=== PATIENT | female | born 1995 | race Caucasian/White ===

== ENCOUNTER 2020-03-12 12:20 | Emergency (ER) | payer MEDICAID, SELFPAY ==
[2020-03-12 13:21] VITALS: BP 176/13; PULSE 111; RESP 20; TEMP 36.6; O2SAT 96; BMI 40.2
--- NOTE | 2020-03-12 13:21 | ED.GENADULT ---
HPI - General Adult General Chief complaint: Chest Pain Stated complaint: CHEST PAIN Time Seen by Provider: 03/12/20 13:20 Source: patient Mode of arrival: ambulatory Limitations: no limitations History of Present Illness HPI narrative: 25-year-old female a medical history of bipolar disease, asthma, migraines, high cholesterol, anxiety here with complaints of some chest discomfort and shortness of breath the last 3 days. Pain occurs at rest comes on for several seconds and self resolved. It is associated with some shortness of breath, palpitations and anxiety. There is no associated diaphoresis, nausea, vomiting, dizziness. Patient tells me that she feels very anxious. She tells me she think she should speak to her psychiatrist about her medications that they can be adjusted. She does have lorazepam at home that has not tried taking this because she says it sometimes makes her feel sleepy. Onset (ago): day(s) Location: chest Radiation: non-radiation Severity: mild Quality: sharp Pain Consistency: intermittent and now resolved Relieving factors: none Exacerbating factors: none Associated symptoms: shortness of breath Treatments prior to arrival: none Related Data Home Medications Medication Instructions Recorded Confirmed Celexa 03/12/20 Gildess FE 1.5 (28) 03/12/20 03/12/20 clonidine 03/12/20 Allergies Allergy/AdvReac Type Severity Reaction Status Date / Time cephalexin [From KEFLEX] Allergy Unknown RASH Unverified 11/24/19 16:41 morphine [MORPHINE] Allergy Unknown RASH/HIVES Unverified 11/24/19 16:41 ranitidine [RANITIDINE] Allergy Unknown VOMITING Unverified 11/24/19 16:41 sucralfate [From CARAFATE] Allergy Unknown VOMITING Unverified 11/24/19 16:41 Sulfa (Sulfonamide Allergy Unknown Verified 01/04/16 00:00 Antibiotics) sulfamethoxazole Allergy Unknown VOMITING Unverified 11/24/19 16:41 [From BACTRIM] trimethoprim [From BACTRIM] Allergy Unknown VOMITING Unverified 11/24/19 16:41 From KEFLEX Allergy Unknown RASH Uncoded 11/24/19 16:41 Review of Systems Review of Systems: Yes all other systems are reviewed and are negative Constitutional: Constitutional: Reports no additional constitutional complaints, Denies body ache(s), Denies chills, Denies fever(s), Denies headache(s) and Denies weakness Eyes: Eyes: Reports no additional eye complaints and Denies change in vision ENT: Reports system reviewed and no additional complaints, except as documented, Denies dizziness, Denies headache(s), Denies nasal congestion, Denies nasal discharge and Denies neck pain Cardiovascular: Cardiovascular: Reports no additional cardiovascular complaints, Reports chest pain, Denies leg edema, Reports palpitations and Reports dyspnea Respiratory: Respiratory: Reports no additional respiratory complaints, Denies cough and Reports dyspnea Gastrointestinal: Gastrointestinal: Reports no additional gastrointestinal complaints, Denies abdominal pain, Denies diarrhea, Denies nausea and Denies vomiting Genitourinary: Genitourinary: Reports no additional female genitourinary complaints and Denies urinary incontinence Musculoskeletal: Musculoskeletal: Reports no additional musculoskeletal complaints, Denies back pain, Denies arthralgias, Denies joint swelling, Denies neck pain, Denies numbness and Denies tingling Integumentary/Breasts: Skin/Breast: Reports system reviewed and no additional complaints, except as docu and Denies rash Neurologic: Reports system reviewed and no additional complaints, except as documented, Denies Abnormal speech present, Denies dizziness, Denies headache(s), Denies numbness, Denies tingling and Denies weakness Endocrine: Endocrine: Reports palpitations PMFSH Past Medical History Attestation statement: The following information was validated with the patient. Source: nursing notes reviewed Medical History Asthma Bipolar 1 disorder Migraine Social History Social History Advance Directives: No Advance Directives Information Provided: No Physical Exam Vital Signs: Vital Signs: Last Vital Signs Temp 97.9 F 03/12/20 13:21 Pulse 111 H 03/12/20 13:21 Resp 20 03/12/20 13:21 BP 176/13 H 03/12/20 13:21 Pulse Ox 96 03/12/20 13:21 Body Mass Index 40.2 Const: General: cooperative, healthy appearing, comfortable and anxious Orientation/consciousness: patient oriented x3 Limitations: no limitations HENMT: Head: Yes normal to inspection Ears: hearing grossly normal bilaterally General nose exam: Normal external nose present Face and sinus: Yes normal facial exam Mouth: Normal oral and palatal mucosa present Throat: Yes posterior oropharynx normal Eyes: General: appearance normal, both eyes and all related structures Pupils: Equal, round and reactive pupils present Neck: Neck: Yes normal visual inspection Chest: Chest palpation & inspection: normal inspection of the chest Resp: Effort & Inspection: normal respiratory effort Auscultation: clear to auscultation bilaterally Cardio: Rate: regular rate Rhythm: regular rhythm Peripheral pulses: Peripheral pulses 2+ throughout GI: Inspection: Yes normal to inspection Palpation (GI): Soft to palpation and nontender Auscultation: normal bowel sounds Back/Spine/Pelvis: Thoracic/Lumbar Spine: thoracic and lumbar spine normal to inspection Skin: General skin exam: no rashes or lesions noted Neuro: General: patient oriented x3, no focal motor deficits and normal sensation to monofilament Cranial nerves: Yes Equal, round and reactive pupils present Cognition (Neuro): normal cognition Speech: No Abnormal speech present Gait exam (Neuro): Normal gait present Motor exam (neuro): 5/5 motor strength present throughout Extrem: General: Yes normal to inspection Course Course Course Narrative: 1320- This is a rapid medical exam. 25 yo female with past medical history of asthma, migraines, HLD, bipolar here chest pain x 3 days, mild shortness of breath, anxiety. Patient relates symptoms to anxiety. Recent admit for bipolar with med management. Will check EKG, CXR. 1605-chest x-ray unremarkable. EKG shows sinus tachycardia with no ischemic changes. Less likely ACS with unremarkable EKG and symptoms greater than 3 days which are atypical in nature. Heart score 0. Patient relates her symptoms to anxiety and her current medications. She has a psychiatrist who she plans on reaching out to to adjust her medications. She tells me that she does not need crisis. She is not suicidal or homicidal and feels like her mood is well managed at this time. Patient given lorazepam 0.5 mg in the ED with improvement in symptoms. Reviewed worrisome signs and symptoms and when to return to the emergency department. Comfortable discharge home. Medical Decision Making Medical Records Medical records reviewed: Yes I reviewed the patient's medical records. Lab Data Lab results reviewed: Yes I reviewed the patient's lab results. Imaging Data Chest x-ray: Attestation: I personally reviewed and interpreted this imaging study as follows: Radiologist's impression: EXAMINATION: XR CHEST CLINICAL INFORMATION: Chest pain COMPARISON: None TECHNIQUE: 2 views of the chest were obtained. FINDINGS: No significant abnormality is noted involving the heart, lungs, mediastinum, bony thorax or soft tissues. XR/XR chest 2V IMPRESSION: Unremarkable examination. ECG Data Attestation: I personally reviewed and interpreted this ECG as follows: Interpretation: Sinus tachycardia with a rate of 117, normal FL, normal QRS, normal QT, normal ST segment Discharge Plan Discharge Clinical Impression: Atypical chest pain, Anxiety Patient Disposition: Home, Self-Care Instructions: Chest Pain (ED), Anxiety (ED) Additional Instructions: Call Vishal Felipe to discuss your medications We gave you one dose of ativan here. You have it at home if you need it. Prescriptions: No Action Celexa RF: 0 Gildess FE 1.5 (28) RF: 0 clonidine RF: 0 Referrals: Sadie Flynn, MARKETING SALES [employer]PERVISOR [Primary Care Provider] - 2 days Stand Alone Forms: Work/School Release Interventions: ED Discharge Assessment Last Done: 03/12/20 16:10 Discharge Date/Time: 03/12/20 16:20
--- NOTE | 2020-03-12 13:25 | ECG_ITS ---
Test Reason : CHEST PAIN Blood Pressure : / mmHG Vent. Rate : 117 BPM Atrial Rate : 117 BPM P-R Int : 124 ms QRS Dur : 078 ms QT Int : 308 ms P-R-T Axes : 056 023 030 degrees QTc Int : 429 ms Sinus tachycardia Otherwise normal ECG When compared to the previous EKG of No significant changes seen Referred By: Ban Stone Electronically Signed By:Casper Melgar
--- NOTE | 2020-03-12 13:25 | XR_ITS ---
EXAMINATION: XR CHEST CLINICAL INFORMATION: Chest pain COMPARISON: None TECHNIQUE: 2 views of the chest were obtained. FINDINGS: No significant abnormality is noted involving the heart, lungs, mediastinum, bony thorax or soft tissues. XR/XR chest 2V IMPRESSION: Unremarkable examination.
[2020-03-12] MEDS: LORazepam 0.5 MG TABLET PO (16:08)
== END 2020-03-12 16:20 | disposition home or self-care (01) ==
LOC: HO.ED 16:12
PROVIDERS: Emergency Provider Emergency Medicine; PCP Nurse Practitioner Family
DX: R07.89 Other chest pain (principal); F41.9 Anxiety disorder, unspecified
CPT/HCPCS: 71046; 93005; 99283

== ENCOUNTER 2020-03-23 17:13 | Inpatient (IN) | payer MEDICAID, OTHER, SELFPAY ==
[2020-03-23 17:37] VITALS: BP 157/113; PULSE 116; RESP 16; TEMP 36.2; O2SAT 98; BMI 36.0
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
[2020-03-23 17:57] VITALS: BP 157/113; PULSE 116; RESP 16; TEMP 36.2; O2SAT 98
--- NOTE | 2020-03-23 18:26 | PC.NURSE ---
Pt walking around unit, anxious about process, plan of care explained. Pt concerned about going inpatient, adamant that she does not want to hurt herself or anyone else. Pt states that last time she went inpatient she was there for months and she does not want that to happen again. Pt states that she is taking her medications but that she was taken off of celexa recently, pt is unsure of what her other medications are at this time. Pt is calm and cooperative, pleasant in conversation.
[2020-03-23 18:38] LABS: Imm Gran Abs Auto 0.03 X10*3/uL (0.00-0.03); MANUAL DIFF FLAG SCAN; Monocytes Absolute Auto 0.5 X10*3/uL (0.1-1.2); PLT CLUMP 1; Red Cell Distribution Width 12.6 % (11.0-16.0); SCAN SMEAR FLAG 1
[2020-03-23 18:40] LABS: Basophils Absolute Auto 0.1 X10*3/uL (0.0-0.2); Basophils Percent Auto 0.5 % (0-2); Eosinophils Absolute Auto 0.2 X10*3/uL (0.0-0.4); Eosinophils Percent Auto 1.5 % (0-4); Hemoglobin 14.1 g/dl (12.0-16.0); Imm Gran Pct Auto 0.2 % (0.0-0.4); Lymphocytes Absolute Auto 2.4 X10*3/uL (1.2-4.9); Lymphocytes Percent Auto 20.2 % (20-40); Mean Corpuscular HGB Conc 32.8 g/dl (31.0-35.0); Mean Corpuscular Hemoglobin 30.5 pg (27.0-33.0); Mean Corpuscular Volume 93.1 fL (80-98); Monocytes Percent Auto 3.7 % (2-11); Neutrophils Absolute Auto 8.9 X10*3/uL (2.0-8.3); Neutrophils Percent Auto 73.9 % (45-73); Red Blood Count 4.62 X10*6/uL (4.20-5.50); White Blood Count 12.1 X10*3/uL (4.8-10.8)
--- NOTE | 2020-03-23 19:04 | PC.NURSE ---
DEJUAN faxed/called/spoke with Gloria/confirmed receipt of referral/no ETA at this time, Patient advised to offer urine for MENSAH, no distress reported, will continue to monitor.
[2020-03-23 19:06] LABS: Ethanol < 10 mg/dL
[2020-03-23 19:07] LABS: Anion Gap 14 (12-20); Blood Urea Nitrogen 6 mg/dL (9-16); Calcium 8.7 mg/dL (8.4-10.2); Carbon Dioxide 24 mmol/L (22-29); Chloride 107 mmol/L (96-108); Creatinine Clr Calc Pharmacy 137.5; Estimated Glomerular Filt Rate > 60; Glucose Random 90 mg/dL (60-115); Sodium 141 mmol/L (135-145)
[2020-03-23 19:33] LABS: Platelet Count 230 X10*3/uL (160-400)
[2020-03-23 19:35] LABS: Mean Platelet Volume 11.1 fL (9.4-12.3)
[2020-03-23 19:38] LABS: SLIDE REVIEW VERIFIED
[2020-03-23 19:42] LABS: UPreg QC Valid YES; Urine Pregnancy NEGATIVE (NEGATIVE)
[2020-03-23 19:45] LABS: COVID-19 Test Negative (Negative); IDNOW Serial# 9DD0AD1C
[2020-03-23 20:10] LABS: Amphetamine Screen Urine Not Detected (Not Detect); Barbiturates, Urine Not Detected (Not Detect); Benzodiazepines Screen Urine Not Detected (Not Detect); Cannabinoid Screen Urine POSITIVE (Not Detect); Cocaine Screen Urine Not Detected (Not Detect); Opiate Screen Urine Not Detected (Not Detect); Phencyclidine Screen Urine Not Detected (Not Detect)
[2020-03-23 20:14] VITALS: BP 149/114; PULSE 110; RESP 20; TEMP 36.8; O2SAT 97
[2020-03-23 20:31] VITALS: BP 149/114; PULSE 110
[2020-03-23] MEDS: OLANZapine 5 MG TABLET PO (20:31)
[2020-03-23] MEDS: cloNIDine HCL 0.1 MG TABLET PO (20:31)
--- NOTE | 2020-03-23 20:43 | PC.NURSE ---
[facility]N with patient for evaluation, patient seems engaged, will continue to monitor
[2020-03-24] VITALS (11 sets, daily range): BP systolic 131–175; BP diastolic 41–115; PULSE 100–107; RESP 16–20; TEMP 36.1–36.8; O2SAT 96–98
[2020-03-24] MEDS: OLANZapine 5 MG TABLET PO ×2 (00:02→20:05)
[2020-03-24] MEDS: LORazepam 1 MG TABLET PO ×2 (00:02→07:43)
--- NOTE | 2020-03-24 00:05 | PC.NURSE ---
Patient seems anxious, not so happy with disposition, and reported difficulty sleeping, requested Olanzapine which according to the patient is very helpful to calm her down, provider notified/ordered Ativan 1 mg tablet and Olanzapine 5 mg tablet, patient compliant with medication, will continue to monitor.
--- NOTE | 2020-03-24 00:56 | MHC.CARE ---
CARE Team is present in pod and pt requests to check in. Pt appears anxious and uncomfortable. Pt identifies feeling anxious in response to another pt in the pod who is agitated/loud. rescue worker offers support, encourages cognative restructuring, and suggests coping skills. Pt has been calling her numerous times and is frustrated/worried that he is not responding. She reflects that her behavior earlier today may have negatively impacted their relationship. She identifies that she would like to go home, but understands the plan for sect 12 bedsearch. She reports that she was on last year and stepped down to [facility], which she found helpful. CARE Team receives [facility] crisis eval and will give to for review.
--- NOTE | 2020-03-24 07:24 | PC.NURSE ---
Report received from ABBIE Hilton. Pt awake, alert. Requesting AM medications for anxiety. Pt aware of the time medication schedule and is in agreement w/ waiting. No other concerns reported at this time.
--- NOTE | 2020-03-24 07:39 | PC.NURSE ---
Pt states she is unable to wait until [address] Sanchez notified pt is requesting medications for anxiety.
[2020-03-24] MEDS: cloNIDine HCL 0.1 MG TABLET PO (07:43)
--- NOTE | 2020-03-24 08:39 | PC.NURSE ---
Pt reports only mild relief of anxiety after medications given. Pt states she is anxious about transfer to , reports that she has been recently hospitalized at [facility]. Pt mildly tangential at times, states that anxiety is typically worse in the morning because of PTSD. Pt also reporting chronic lower pelvic pain, states that she has an appt w/ the surgeon who removed her appendix but is uncertain when.
--- NOTE | 2020-03-24 09:31 | PC.NURSE ---
Late entry: A Kajal notified of pt symptoms, and vitals. In to evaluate. Lab work completed as ordered.
--- NOTE | 2020-03-24 09:32 | US_ITS ---
EXAMINATION: US PELVIS CLINICAL INFORMATION: Right-sided pelvic pain. COMPARISON: Previous CT of the abdomen and pelvis April 2016 and pelvic ultrasound December 2015. TECHNIQUE: Transabdominal and transvaginal pelvic ultrasound was performed. Doppler and color evaluation of the arterial and venous flow to the ovaries was performed including waveform spectral analysis. FINDINGS: The uterus is anteverted and measures 8.2 x 3.5 x 4.6 cm in dimension. No focal uterine lesion is seen. Endometrial thickness is normal estimated at 0.5 cm. The ovaries are difficult to visualize. The right ovary measures 3.1 x 1.6 x 2 cm and the left ovary measures 2.4 x 2.1 x 1.9 cm. No focal ovarian lesion is seen. Arterial and venous flow is documented to both ovaries. There is no evidence of torsion. There is no fluid in the pelvis. US/US pelvic ovarian doppler IMPRESSION: Limited visualization of the ovaries due to patient body habitus. The ovaries are normal-appearing and there is no evidence of torsion.
--- NOTE | 2020-03-24 09:32 | US_ITS ---
EXAMINATION: US PELVIS CLINICAL INFORMATION: Right-sided pelvic pain. COMPARISON: Previous CT of the abdomen and pelvis April 2016 and pelvic ultrasound December 2015. TECHNIQUE: Transabdominal and transvaginal pelvic ultrasound was performed. Doppler and color evaluation of the arterial and venous flow to the ovaries was performed including waveform spectral analysis. FINDINGS: The uterus is anteverted and measures 8.2 x 3.5 x 4.6 cm in dimension. No focal uterine lesion is seen. Endometrial thickness is normal estimated at 0.5 cm. The ovaries are difficult to visualize. The right ovary measures 3.1 x 1.6 x 2 cm and the left ovary measures 2.4 x 2.1 x 1.9 cm. No focal ovarian lesion is seen. Arterial and venous flow is documented to both ovaries. There is no evidence of torsion. There is no fluid in the pelvis. US/US pelvic complete IMPRESSION: Limited visualization of the ovaries due to patient body habitus. The ovaries are normal-appearing and there is no evidence of torsion.
--- NOTE | 2020-03-24 09:32 | US_ITS ---
EXAMINATION: US PELVIS CLINICAL INFORMATION: Right-sided pelvic pain. COMPARISON: Previous CT of the abdomen and pelvis April 2016 and pelvic ultrasound December 2015. TECHNIQUE: Transabdominal and transvaginal pelvic ultrasound was performed. Doppler and color evaluation of the arterial and venous flow to the ovaries was performed including waveform spectral analysis. FINDINGS: The uterus is anteverted and measures 8.2 x 3.5 x 4.6 cm in dimension. No focal uterine lesion is seen. Endometrial thickness is normal estimated at 0.5 cm. The ovaries are difficult to visualize. The right ovary measures 3.1 x 1.6 x 2 cm and the left ovary measures 2.4 x 2.1 x 1.9 cm. No focal ovarian lesion is seen. Arterial and venous flow is documented to both ovaries. There is no evidence of torsion. There is no fluid in the pelvis. US/US transvaginal IMPRESSION: Limited visualization of the ovaries due to patient body habitus. The ovaries are normal-appearing and there is no evidence of torsion.
[2020-03-24 09:40] LABS: Glucose Urine UA NEG (NEG); Leukocyte Esterase Urine 2+ (NEG); Nitrite Urine NEG (NEG); UACC Culture Trigger YES; Urine Blood NEG (NEG); Urine Ketones NEG (NEG); Urine Protein NEG (NEG-TRACE)
[2020-03-24 09:43] LABS: Appearance Urine HAZY; Color Urine YELLOW
[2020-03-24 09:53] LABS: Bacteria Urine TRACE /LPF; RBC Urine 0 /HPF (0); Squamous Epithelial Cell Urine 2+ /LPF; UACC CULT YES
[2020-03-24 09:56] LABS: Alanine Aminotransferase 14 U/L (0-31); Alkaline Phosphatase 69 U/L (39-117); Aspartate Amino Transferase 15 U/L (5-31); Bilirubin Direct < 0.2 mg/dL (0.0-0.5); Bilirubin Total < 0.2 mg/dL (0.0-1.0); Total Protein 6.7 g/dL (6.5-8.0)
--- NOTE | 2020-03-24 10:10 | PC.NURSE ---
Pt alert, restless. Spoke w/ pt about upcoming testing including ultrasound. Pt aware, and in agreement w/ plan.
--- NOTE | 2020-03-24 10:53 | PC.NURSE ---
Pt continues to report significant anxiety. Reviewed w/ pt what, if any medications might be helpful. Pt anxious about medications as well stating 'i don't want to be lobotomized.' Pt reassured, message left for provider.
[2020-03-24] MEDS: OLANZapine 2.5 MG TABLET PO (11:03)
--- NOTE | 2020-03-24 11:06 | PC.NURSE ---
Ultrasound called- state they are aware of pt and will try to complete her US within the next 2 hours.
[2020-03-24 11:28] LABS: CT PCR NOT DETECTED (Not Detect.); NG PCR NOT DETECTED (Not Detect.)
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
[2020-03-24 12:26] LABS: BV Int Neg Control Negative (Negative); BV Int Pos Control Positive (Positive)
--- NOTE | 2020-03-24 12:34 | PC.NURSE ---
Pt at ultrasound w/ staff and security
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
[2020-03-24] MEDS: Nitrofurantoin Monohyd/M-Cryst 100 MG CAPSULE PO ×2 (15:12→20:05)
--- NOTE | 2020-03-24 15:39 | PC.NURSE ---
Pt frequently requesting information re: time of transfer to . Reports feeling anxious to go. provider in to review results of testing. Pt being treated for UTI, questions answered.
--- NOTE | 2020-03-24 15:59 | PC.NURSE ---
Report given to ABBIE Best on [facility]
--- NOTE | 2020-03-24 16:35 | PC.NURSE ---
CARE team in to transfer pt to [facility]. Pt cooperative w/ transfer, in agreement w/ plan, no concerns reported.
--- NOTE | 2020-03-24 16:57 | PC.NURSE ---
pt signed a 3-day notice on 03/24/2020. 3-day notice will be up on , 03/29/2020
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
[2020-03-25 04:35] VITALS: BP 162/74; PULSE 72; RESP 16; TEMP 36.2; O2SAT 96
[2020-03-25] MEDS: LORazepam 0.5 MG TABLET PO ×4 (04:43→18:56)
[2020-03-25] MEDS: OLANZapine 5 MG TABLET PO ×2 (04:43→21:48)
[2020-03-25 05:40] VITALS: BP 145/83
[2020-03-25] MEDS: Acetaminophen 325 MG TABLET 650 MG PO ×2 (06:10→20:38)
[2020-03-25 08:05] LABS: Estimated Average Glucose 88 mg/dL; Hemoglobin A1c % 4.7 %
[2020-03-25 09:06] VITALS: BP 145/83; PULSE 72
[2020-03-25] MEDS: cloNIDine HCL 0.1 MG TABLET PO (09:06)
[2020-03-25] MEDS: Nitrofurantoin Monohyd/M-Cryst 100 MG CAPSULE PO ×2 (09:06→20:38)
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
[2020-03-25 18:00] VITALS: BP 150/98; PULSE 83; TEMP 36.5
[2020-03-25] MEDS: traZODone HCL 50 MG TABLET PO (21:47)
[2020-03-26] MEDS: OLANZapine 5 MG TABLET PO ×2 (04:38→17:03)
[2020-03-26] MEDS: LORazepam 0.5 MG TABLET PO ×4 (04:38→22:32)
[2020-03-26 04:40] VITALS: BP 156/94; PULSE 91; RESP 18; TEMP 36.4; O2SAT 98
[2020-03-26 06:25] VITALS: BP 150/87; PULSE 109; RESP 16; TEMP 36.3; O2SAT 95
[2020-03-26 07:21] LABS: Vitamin D 25-OH Total 8.2 ng/mL (>30)
[2020-03-26 08:39] LABS: Folate 11.3 ng/mL (> or = 4.0); Vitamin B12 193 pg/mL (200-900)
[2020-03-26] MEDS: cloNIDine HCL 0.1 MG TABLET PO ×2 (08:42→20:26)
[2020-03-26] MEDS: Nitrofurantoin Monohyd/M-Cryst 100 MG CAPSULE PO ×2 (08:43→20:26)
[2020-03-26] MEDS: Acetaminophen 325 MG TABLET 650 MG PO (08:43)
[2020-03-26 17:18] VITALS: BP 136/68; PULSE 86; TEMP 36.2
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
[2020-03-26 18:39] VITALS: BP 141/101; PULSE 95; TEMP 36.5
[2020-03-26 20:26] VITALS: BP 140/103; PULSE 94
[2020-03-26] MEDS: OLANZapine 2.5 MG TABLET 7.5 MG PO (20:27)
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
[2020-03-27 06:30] VITALS: BP 150/91; PULSE 98; RESP 18; TEMP 36.1; O2SAT 97
[2020-03-27] MEDS: Acetaminophen 325 MG TABLET 650 MG PO (08:52)
[2020-03-27] MEDS: LORazepam 0.5 MG TABLET PO ×5 (08:53→21:38)
[2020-03-27] MEDS: Nitrofurantoin Monohyd/M-Cryst 100 MG CAPSULE PO ×2 (08:55→21:38)
[2020-03-27 08:56] VITALS: BP 150/91; PULSE 98
[2020-03-27] MEDS: cloNIDine HCL 0.1 MG TABLET PO (08:56)
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
[2020-03-27 12:21] VITALS: BP 130/90; PULSE 106; RESP 20; TEMP 35.9; O2SAT 96
[2020-03-27 14:48] VITALS: BP 139/97; PULSE 113; RESP 18; TEMP 36.2; O2SAT 97
[2020-03-27 18:00] VITALS: BP 153/96; PULSE 123; TEMP 36.4
[2020-03-27] MEDS: Hydrocortisone 1 % Cream 28.35 GM TUBE 1 APPL TOPICAL (19:56)
[2020-03-27 21:38] VITALS: BP 153/96; PULSE 123
[2020-03-27] MEDS: cloNIDine HCL 0.2 MG TABLET PO (21:38)
[2020-03-27] MEDS: OLANZapine 10 MG TABLET PO (21:38)
[2020-03-28 06:10] VITALS: BP 136/82; PULSE 90; RESP 18; TEMP 35.9; O2SAT 99
[2020-03-28] MEDS: Acetaminophen 325 MG TABLET 650 MG PO (06:45)
[2020-03-28 08:34] VITALS: BP 136/82; PULSE 90
[2020-03-28] MEDS: cloNIDine HCL 0.2 MG TABLET PO ×2 (08:34→20:14)
[2020-03-28] MEDS: LORazepam 0.5 MG TABLET PO ×3 (08:34→20:13)
[2020-03-28] MEDS: Nitrofurantoin Monohyd/M-Cryst 100 MG CAPSULE PO ×2 (08:34→20:14)
--- NOTE | 2020-03-28 16:21 | HO.PSYCHPN ---
Subjective Subjective Date of Service: 03/28/20 Reason For Visit: bipolar I, manic with psychotic features Subjective Notes: 3 Day (03/29/20) Interim History: Appears less anxious today. Blood pressure is decreasing. Requested meeting with pt, and Chantell CARTER for 03/29/20 11am to review concerns and educate regarding pt's symptoms and need for care. TDN expires 03/29/20. Pt is planning discharge. Pt currently at 10 mg Zyprexa which she wants to remain at (OP team Rx 15 mg). Pt reports sx of discomfort and bloating with UTI/Menses concurrently. Pt asked why BCP was not given-team reports they do not give placebo pills when in pt and pt has menses. Pt interested in PHP and will be referred. Medication Compliance: Yes Side effects from medications: No Attending Groups: Yes Review of Systems Genitourinary: Reports other (current menses/UTI) Reports behavioral changes Psychiatric: Reports anxiety, Reports behavioral changes and Reports irritability Mental Status Exam Mental Status Exam Patient Appearance: Appropriate Patient Orientation: Person, Place and Time Level of Consciousness: Alert Patient Behavior: Guarded, Talkative and Suspicious Mood Description: Anxious Affect Description: Constricted Patient Cognition Impaired: No Ability to Follow Directions: Fair Speech Pattern: Spontaneous Speech Memory Description: Intact Hallucinations: None Delusions: Paranoid Ideation and Present Thought Process: Distracted and Rumination Thought Content: positive for Circumstantial Depressive Symptoms: Increased Anxiety Judgement: Fair Diagnostics Vital Signs (24Hr): Vital Signs - 24 hr 03/27/20 18:00 03/27/20 21:38 03/28/20 06:10 Temperature 97.6 F 96.7 F L Pulse Rate 123 H 123 H 90 Respiratory Rate 18 Blood Pressure 153/96 H 153/96 H 136/82 Pulse Oximetry 99 03/28/20 08:34 Temperature Pulse Rate 90 Respiratory Rate Blood Pressure 136/82 Pulse Oximetry Body Mass Index 36.0 Labs Results: 03/23/20 18:21 03/23/20 18:21 Imaging Radiology Impressions: ITS Impressions Doppler Study Ultrasound 03/24/20 09:32 IMPRESSION: Limited visualization of the ovaries due to patient body habitus. The ovaries are normal-appearing and there is no evidence of torsion. Pelvis Ultrasound 03/24/20 09:32 IMPRESSION: Limited visualization of the ovaries due to patient body habitus. The ovaries are normal-appearing and there is no evidence of torsion. Transvaginal US 03/24/20 09:32 IMPRESSION: Limited visualization of the ovaries due to patient body habitus. The ovaries are normal-appearing and there is no evidence of torsion. Medications Medications Current Medications Generic Name Dose Route Start Last Admin Trade Name Freq PRN Reason Stop Dose Admin Acetaminophen 650 mg 03/24/20 19:01 03/28/20 06:45 Acetaminophen 325 Mg Tablet PO 650 mg Q6H PRN Administration Headache/Pain Mild Scale (1-3) Al Hydroxide/Mg Hydroxide 30 ml 03/24/20 19:01 Magnesium Hydrox/Alum Hydrox 30 Ml Oral.Susp PO Q6H PRN Heartburn/Nausea Clonidine HCl 0.2 mg 03/27/20 21:00 03/28/20 08:34 Clonidine Hcl 0.2 Mg Tablet PO 0.2 mg BID ALTON Administration Protocol Hydrocortisone 1 appl 03/26/20 15:41 03/27/20 19:56 Hydrocortisone 1 % Cream 28.35 Gm Tube TOPICAL 1 appl BID PRN Administration dermatitis Protocol Hydroxyzine HCl 25 mg 03/24/20 19:01 Hydroxyzine Hcl 25 Mg Tablet PO BEDTIME PRN Anxiety Lorazepam 0.5 mg 03/24/20 18:59 03/27/20 19:14 Lorazepam 0.5 Mg Tablet PO 0.5 mg Q4H PRN Administration agitation, anxiety Lorazepam 0.5 mg 03/26/20 21:00 03/28/20 14:46 Lorazepam 0.5 Mg Tablet PO 0.5 mg TID ALTON Administration Magnesium Hydroxide 30 ml 03/24/20 19:01 Milk Of Magnesia 30 Ml Oral.Susp PO DAILY PRN Constipation Nitrofurantoin Macrocrystals 100 mg 03/24/20 21:00 03/28/20 08:34 Nitrofurantoin Monohyd/M-Cryst 100 Mg Capsule PO 03/28/20 21:01 100 mg BID ALTON Administration Olanzapine 5 mg 03/24/20 18:59 03/26/20 17:03 Olanzapine 5 Mg Tablet PO 5 mg BID PRN Administration agitation, yolette, psychosis Olanzapine 10 mg 03/27/20 21:00 03/27/20 21:38 Olanzapine 10 Mg Tablet PO 10 mg BEDTIME ALTON Administration Trazodone HCl 50 mg 03/24/20 19:01 03/25/20 21:47 Trazodone Hcl 50 Mg Tablet PO 50 mg BEDTIME PRN Administration Insomnia Allergies Allergies Allergy/AdvReac Type Severity Reaction Status Date / Time cephalexin [From KEFLEX] Allergy Unknown RASH Verified 03/23/20 20:39 morphine [MORPHINE] Allergy Unknown RASH/HIVES Verified 03/23/20 20:39 ranitidine [RANITIDINE] Allergy Unknown VOMITING Verified 03/23/20 20:39 sucralfate [From CARAFATE] Allergy Unknown VOMITING Verified 03/23/20 20:40 Sulfa (Sulfonamide Allergy Unknown Rash Verified 03/23/20 20:39 Antibiotics) sulfamethoxazole Allergy Unknown VOMITING Verified 03/23/20 20:40 [From BACTRIM] trimethoprim [From BACTRIM] Allergy Unknown VOMITING Verified 03/23/20 20:42 From KEFLEX Allergy Unknown RASH Uncoded 11/24/19 16:41 Assessment & Plan Assessment & Plan (1) Bipolar disorder, current episode manic severe with psychotic features: Status: Acute Code(s): F31.2 - Bipolar disorder, current episode manic severe with psychotic features Assessment and Plan: -Improving with Zyprexa titration -Active TDN. -Meeting with on 03/29/20 to review potential discharge Greater than 50% of the session was spent on counseling and/or coordination of care
[2020-03-28 18:00] VITALS: BP 142/76; PULSE 103; TEMP 36.3
[2020-03-28] MEDS: OLANZapine 10 MG TABLET PO (20:13)
[2020-03-28 20:14] VITALS: BP 142/76; PULSE 103
[2020-03-29] MEDS: OLANZapine 5 MG TABLET PO (04:07)
[2020-03-29 06:15] VITALS: BP 150/90; PULSE 64; RESP 16; TEMP 36.4; O2SAT 100
[2020-03-29 08:48] VITALS: BP 150/90; PULSE 64
[2020-03-29] MEDS: cloNIDine HCL 0.2 MG TABLET PO (08:48)
[2020-03-29] MEDS: LORazepam 0.5 MG TABLET PO ×2 (08:48→09:34)
[2020-03-29 09:07] LABS: Cholesterol 232 mg/dL; Glucose Fasting 91 mg/dL (60-99); HDL Cholesterol 44 mg/dL; LDL Cholesterol Calculated 160 mg/dl; Triglycerides 142 mg/dL
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
== END 2020-03-29 14:11 | disposition home or self-care (01) | DRG 753 ==
LOC: HO.ED 21:13 → HO.PM5 03-24 16:20
PROVIDERS: Nurse Practitioner Primary Care; Physician Assistant Medical; Admitting Provider Psychiatry & Neurology Psychiatry; Emergency Provider Emergency Medicine; Visit Provider Clinical Nurse Specialist Psychiatric/Mental Health, Adult
DX: F31.2 Bipolar disorder, current episode manic severe with psychotic features (principal); R45.851 Suicidal ideations; L25.9 Unspecified contact dermatitis, unspecified cause; Z20.822 Contact with and (suspected) exposure to COVID-19; Z88.2 Allergy status to sulfonamides; Z88.5 Allergy status to narcotic agent; Z79.899 Other long term (current) drug therapy
CPT/HCPCS: 36415; 76830; 76856; 80048; 80061; 80076; 80307; 80320; 81001; 81025; 82306; 82607; 82746; 82947; 83036; 85025; 87086; 87480; 87491; 87510; 87591; 87635; 87660; 90792; 93975; 99232; 99285

== ENCOUNTER 2020-04-04 09:30 | Outpatient (RCR) | payer OTHER, SELFPAY ==
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
--- NOTE | 2020-04-04 12:03 | PC.NURSE ---
Patient called and left a VM message asking me to call her back as she just had a panic attack. I called patient back and she stated that she does not want to continue the program at this time. She stated she is not suicidal or homicidal and that she needed some more time to get organized. She stated grounding techniques are not helping with her anxiety. She also stated that she is not in a good space and feels like snapping at everyone in the group. Stated that she feels angry at others because they think she has a substance abuse problem and she feels she does not have an issue with substances. Talked about taking her PRN Zyprexa before group to help with her anxiety and agitation or talk with [facility] to adjust her medications to help stabilize her mood. She stated that she is working with her prescriber regarding her medications and needed time to organize herself and that she will call No to reschedule an appointment for a re-assessement. She stated she does want to do the program as it helped her last time.
== END 2020-04-04 23:55 | disposition left against medical advice (07) ==
LOC: HO.PHPA 09:30
PROVIDERS: Visit Provider Psychiatry & Neurology Psychiatry
DX: F31.30 Bipolar disorder, current episode depressed, mild or moderate severity, unspecified (principal); F12.20 Cannabis dependence, uncomplicated
CPT/HCPCS: 90791; 90853

== ENCOUNTER 2020-05-15 10:00 | Outpatient (RCR) | payer OTHER, SELFPAY ==
--- NOTE | 2020-04-26 12:04 | PM.EVENT ---
Event Note Date of Service: 04/26/20 Event Note: Maria Elena no show to initial medication evaluation on 04/26/2020.
[2020-04-26 12:11] VITALS: BMI 36.3
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
--- NOTE | 2020-04-27 13:24 | HO.PS.ADMBH ---
HPI Chief Complaint: depression Sources of Information: patient interviewed, chart reviewed and crisis/core team assessment reviewed HPI Narrative: Ms. Nieves was referred to PHP as step down from inpatient admission at [facility] due to increase depression, anxious mood and suicidal ideation. Ms. Rodgers reports long history of depression, suicidal ideation and overall mood instability. She reports feeling less depressed, much more hopeful about her future after inpatient admission. She denies SI/HI. She reports sleep/appetite are good. She reports taking medications as prescribed and feels that current medications are very helpful. She denies VH/AH- does not appear to be responding to internal stimuli. Past Psychiatric History: In Pt: 2019 Out Pt: [facility] Sadie Mccloud-psychotherapy; [facility] Psychopharmac[facility] PHP: 2019 Trials: Risperdal, Malone, Citalopram, Lorazepam Medical Evaluation Reviewed: Yes [facility] Medical History (Updated 04/26/20 @ 14:27 by Sharon Claudio RN) Asthma Bipolar 1 disorder Bipolar disorder, current episode manic severe with psychotic features GERD (gastroesophageal reflux disease) IBS (irritable bowel syndrome) Migraine Surgical History (Updated 03/26/20 @ 10:14 by CADENCE Mcclain) History of appendectomy (01/03/16) History of wisdom tooth extraction Family History: Bipolar disorder. 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 03/20 would have been day 90 and she would have been eligibile for benefits. , lives with Trauma History: Yes Diagnostics Vital Signs (24Hr): Body Mass Index 36.3 Meds/Allergies Allergies Allergies Allergy/AdvReac Type Severity Reaction Status Date / Time cephalexin [From KEFLEX] Allergy Unknown RASH Verified 03/23/20 20:39 morphine [MORPHINE] Allergy Unknown RASH/HIVES Verified 03/23/20 20:39 ranitidine [RANITIDINE] Allergy Unknown VOMITING Verified 03/23/20 20:39 sucralfate [From CARAFATE] Allergy Unknown VOMITING Verified 03/23/20 20:40 Sulfa (Sulfonamide Allergy Unknown Rash Verified 03/23/20 20:39 Antibiotics) sulfamethoxazole Allergy Unknown VOMITING Verified 03/23/20 20:40 [From BACTRIM] trimethoprim [From BACTRIM] Allergy Unknown VOMITING Verified 03/23/20 20:42 From KEFLEX Allergy Unknown RASH Uncoded 11/24/19 16:41 Mental Status Exam Mental Status Exam Patient Appearance: Appropriate Patient Orientation: Person, Place, Time and Situation Level of Consciousness: Alert Patient Behavior: Resistive to Care and Avoidant Mood Description: Constricted Affect Description: Constricted Patient Cognition Impaired: No Ability to Follow Directions: Good Speech Pattern: Spontaneous Speech Memory Description: Intact Hallucinations: None Thought Process: Intact Thought Content: positive for Intact Depressive Symptoms: Increased Anxiety Judgement: Good Assessment & Plan Assessment & Plan (1) Bipolar disorder, current episode manic severe with psychotic features: Status: Acute Code(s): F31.2 - Bipolar disorder, current episode manic severe with psychotic features Assessment and Plan: 1. continue current medications. Certification I certify that partial hospital treatment is medically necessary due to the symptoms and problems resulting from the patient's mental illness and the failure to treat the patient at the partial hospital level of care would likely result in the patient requiring inpatient psychiatric care which could not be prevented at a less intensive level of care. Telehealth Telehealth Location of provider rendering services: practice address Location of patient: address on file Patient Identification confirmed using: Name, : Yes Telehealth method: voice only Patient verbally consented to treatment: Yes Patient verbally consented to billing insurance company: Yes Patient informed of any privacy concerns related to visit: Yes Time spent with patient (mins): 30
--- NOTE | 2020-05-01 14:35 | PC.NURSE ---
The client called out because she is not feeling well physically.
--- NOTE | 2020-05-03 15:17 | PC.NURSE ---
I called and left a message with clients therapist at [facility] Sadie APONTE client attending PHP, progress and planned dc date of 05/15
--- NOTE | 2020-05-03 20:07 | P.PNPSP_ITS ---
Subjective Subjective Date of Service: 05/03/20 Reason For Visit: depression Interim History: Pt reports feeling well, sleep is improved, she has more energy and appetite is stable. Regime is well tolerated and [facility] has helped her with focus, organization and I feel back to normal. Denies medical sx, denies substance use, denies SI plan or intent Medication Compliance: Yes Side effects from medications: No Attending Groups: Yes Review of Systems Review of Systems Yes all other systems are reviewed and are negative (denies current medical concern) Mental Status Exam Mental Status Exam Patient Appearance: Appropriate Patient Orientation: Person, Place, Time and Situation Level of Consciousness: Awake and Alert Patient Behavior: Appropriate and Cooperative Mood Description: Calm Affect Description: Calm Patient Cognition Impaired: No Ability to Follow Directions: Good Speech Pattern: Spontaneous Speech Memory Description: Intact Hallucinations: None Delusions: Not Present Thought Process: Intact Thought Content: positive for Intact Judgement: Good Diagnostics Vital Signs (24Hr): Body Mass Index 36.3 Assessment & Plan Assessment & Plan (1) Bipolar disorder, current episode manic severe with psychotic features: Status: Acute Code(s): F31.2 - Bipolar disorder, current episode manic severe with psychotic features Assessment and Plan: -Continue current plan of care. Patient educated on: therapeutic strategies Informed Consent: understands Certification I certify that partial hospital treatment is medically necessary due to the symptoms and problems resulting from the patient's mental illness and the failure to treat the patient at the partial hospital level of care would likely result in the patient requiring inpatient psychiatric care which could not be prevented at a less intensive level of care. Greater than 50% of the session was spent on counseling and/or coordination of care Discharge Plan Discharge Attending provider: Home Garcia Medications: No Action norethindrone-e.estradiol-iron 1.5 mg-30 mcg (21)/75 mg (7) Tablet 1 tab PO DAILY RF: 0 olanzapine 5 mg Tablet 5 mg PO BID PRN (Reason: agitation, yolette, psychosis) Qty: 14 RF: 1 clonidine HCl 0.3 mg Tablet 0.3 mg PO BID RF: 0 lamotrigine 25 mg Tablet 75 mg PO DAILY RF: 0 gabapentin 300 mg Capsule 300 mg PO BEDTIME RF: 0 olanzapine 20 mg Tablet 20 mg PO BEDTIME RF: 0 Telehealth Telehealth Location of provider rendering services: practice address Location of patient: address on file Patient Identification confirmed using: Name, : Yes Telehealth method: video Patient verbally consented to treatment: Yes Patient verbally consented to billing insurance company: Yes Patient informed of any privacy concerns related to visit: Yes Time spent with patient (mins): 15
--- NOTE | 2020-05-08 10:06 | PC.NURSE ---
Patient called out today as she was not feeling well stating she woke up very anxious and nauseous becase she felt anxious. Stated she was going to rest/sleep today. Stated she filled her pill box for the week and thinks that she did not get a prescription for clonidine 0.3 mg BID when she was discharged from the hospital and thinks this is why she is feeling more anxious. I called the pharmacy and pharmacy stated she picked up Clonidine 0.3 mg BID, Gabapentin 300 mg QHS, and Zyprexa 20 mg Q HS on 04/20/20 for 30 day supply. 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 Discussed information with patient and she stated she is going to check her pill organizer. She also stated she has been taking the lamictal as she has left over medications. Also let patient know to look on the prescription bottles as there is a description of the pills so she can identify the medications in her pill organizer. Also [facility] has a pill identifier web site if needed.
--- NOTE | 2020-05-09 14:21 | PC.NURSE ---
Prior to starting this morning the client called and reported feeling anxious. We discussed ways to manage her anxiety and she agreed to come to the group
--- NOTE | 2020-05-09 16:45 | HO.PHPPROGNO ---
Subjective Subjective Date of Service: 05/28/20 Reason For Visit: depression Interim History: Pt reports feeling well, sleep has improved, she has more energy and appetite is stable. Regime is well tolerated and PHP has helped her with focus, organization and I feel back to normal. Denies medical sx, denies substance use, denies SI plan or intent. No safety concerns. No medication changes at this point. Review of Systems Review of Systems Yes all other systems are reviewed and are negative (denies current medical concern) Mental Status Exam Mental Status Exam Patient Appearance: Appropriate Patient Orientation: Person, Place, Time and Situation Level of Consciousness: Awake and Alert Patient Behavior: Appropriate and Cooperative Mood Description: Calm Affect Description: Calm Patient Cognition Impaired: No Ability to Follow Directions: Good Speech Pattern: Spontaneous Speech Memory Description: Intact Diagnostics Vital Signs (24Hr): Body Mass Index 36.3 Assessment & Plan Assessment & Plan (1) Bipolar disorder, current episode manic severe with psychotic features: Status: Acute Code(s): F31.2 - Bipolar disorder, current episode manic severe with psychotic features Assessment and Plan: -Continue current plan of care. Certification I certify that partial hospital treatment is medically necessary due to the symptoms and problems resulting from the patient's mental illness and the failure to treat the patient at the partial hospital level of care would likely result in the patient requiring inpatient psychiatric care which could not be prevented at a less intensive level of care. Greater than 50% of the session was spent on counseling and/or coordination of care Discharge Plan Discharge Attending provider: Home Garcia Additional Instructions: DC appointments Sadie Peguero 05/21 for individual therapy , Shantell Felipe 06/05 For medication management Client states that she will be attending [facility] and will look for support group on [facility] Medications: Continued clonidine HCl 0.3 mg Tablet 0.3 mg PO BID 15 Days Qty: 30 RF: 0 gabapentin 300 mg Capsule 300 mg PO BEDTIME 30 Days Qty: 30 RF: 0 olanzapine 20 mg Tablet 20 mg PO BEDTIME 30 Days Qty: 30 RF: 0 No Action norethindrone-e.estradiol-iron 1.5 mg-30 mcg (21)/75 mg (7) Tablet 1 tab PO DAILY RF: 0 olanzapine 5 mg Tablet 5 mg PO BID PRN (Reason: agitation, yolette, psychosis) Qty: 14 RF: 1 lamotrigine 25 mg Tablet 75 mg PO DAILY RF: 0 Telehealth Telehealth Location of provider rendering services: practice address Location of patient: address on file Patient Identification confirmed using: Name, : Yes Telehealth method: voice only Patient verbally consented to treatment: Yes Patient verbally consented to billing insurance company: Yes Patient informed of any privacy concerns related to visit: Yes Time spent with patient (mins): 15
--- NOTE | 2020-05-15 08:42 | PC.NURSE ---
left message with Sadie Peguero at [facility] that client will be discharged today.
--- NOTE | 2020-05-15 15:39 | HO.PHPPROGNO ---
Subjective Subjective Date of Service: 05/15/20 Reason For Visit: depression Interim History: TC to pt as video connection did not work. Today is pt's final day of PHP. She reports the program was very helpful and worries what she will do with the loss of structure. Reports sleep, appetite are WNL and she has had a stable mood with no SI plan or intent, no HI plan or intent. Medications are effective and pt plans to refill today. Will meet with her provider on 06/05/20. Medication Compliance: Yes Side effects from medications: No Attending Groups: Yes Review of Systems Review of Systems Yes all other systems are reviewed and are negative (denies current medical issues) Psychiatric: Reports no additional psychiatric complaints, Reports anxiety (regarding loss of PHP structure), Reports homicidal ideation (denies) and Reports suicidal ideation (denies) Mental Status Exam Mental Status Exam Patient Orientation: Person, Place, Time and Situation Level of Consciousness: Awake and Alert Patient Behavior: Appropriate and Talkative Mood Description: Calm Affect Description: Calm Patient Cognition Impaired: No Ability to Follow Directions: Good Speech Pattern: Clear and Spontaneous Speech Memory Description: Intact Hallucinations: None Delusions: Not Present Thought Process: Intact Thought Content: positive for Intact Judgement: Good Diagnostics Vital Signs (24Hr): Body Mass Index 36.3 Assessment & Plan Assessment & Plan (1) Bipolar disorder, current episode manic severe with psychotic features: Status: Acute Code(s): F31.2 - Bipolar disorder, current episode manic severe with psychotic features Patient educated on: therapeutic strategies Informed Consent: understands Certification I certify that partial hospital treatment is medically necessary due to the symptoms and problems resulting from the patient's mental illness and the failure to treat the patient at the partial hospital level of care would likely result in the patient requiring inpatient psychiatric care which could not be prevented at a less intensive level of care. Greater than 50% of the session was spent on counseling and/or coordination of care Discharge Plan Discharge Attending provider: Home Garcia Additional Instructions: DC appointments Sadie Peguero 05/21 for individual therapy , Shantell Felipe 06/05 For medication management Client states that she will be attending [facility] and will look for support group on [facility] Medications: Continued clonidine HCl 0.3 mg Tablet 0.3 mg PO BID 15 Days Qty: 30 RF: 0 gabapentin 300 mg Capsule 300 mg PO BEDTIME 30 Days Qty: 30 RF: 0 olanzapine 20 mg Tablet 20 mg PO BEDTIME 30 Days Qty: 30 RF: 0 No Action norethindrone-e.estradiol-iron 1.5 mg-30 mcg (21)/75 mg (7) Tablet 1 tab PO DAILY RF: 0 olanzapine 5 mg Tablet 5 mg PO BID PRN (Reason: agitation, yolette, psychosis) Qty: 14 RF: 1 lamotrigine 25 mg Tablet 75 mg PO DAILY RF: 0 Telehealth Telehealth Location of provider rendering services: practice address Location of patient: address on file Patient Identification confirmed using: Name, : Yes Telehealth method: voice only Patient verbally consented to treatment: Yes Patient verbally consented to billing insurance company: Yes Patient informed of any privacy concerns related to visit: Yes Time spent with patient (mins): 15
== END 2020-05-15 23:55 | disposition home or self-care (01) ==
LOC: HO.PHPA 10:00
PROVIDERS: Visit Provider Psychiatry & Neurology Psychiatry
DX: F31.2 Bipolar disorder, current episode manic severe with psychotic features (principal); Z79.899 Other long term (current) drug therapy
CPT/HCPCS: 90791; 90853